=== PATIENT | male | born 1935 | race Caucasian/White ===

== ENCOUNTER 2023-06-08 06:29 | Day surgery (SDC) | payer OTHER ==
[2023-06-05 11:00] VITALS: BMI 26.5
[2023-06-08] MEDS ORDERED: PROPOFOL 200 MG/20 ML VIAL ONE (09:44)
== END 2023-06-08 11:11 | disposition home or self-care (01) ==
LOC: SDC 06:29
PROVIDERS: ATTEND Internal Medicine Gastroenterology
PROC: 0DBM8ZZ Excision of Descending Colon, Via Natural or Artificial Opening Endoscopic (ICD-10-PCS; principal; 2023-06-08)
DX: D12.4 Benign neoplasm of descending colon (principal); K59.09 Other constipation; K57.30 Diverticulosis of large intestine without perforation or abscess without bleeding; K64.4 Residual hemorrhoidal skin tags; E11.9 Type 2 diabetes mellitus without complications; I10 Essential (primary) hypertension; Z86.010 Personal history of colon polyps; Z90.49 Acquired absence of other specified parts of digestive tract; Z79.82 Long term (current) use of aspirin; Z79.84 Long term (current) use of oral hypoglycemic drugs; Z79.899 Other long term (current) drug therapy
CPT/HCPCS: 88305; J2704